=== PATIENT | female | born 1995 | race Caucasian/White ===

== ENCOUNTER → 2017-01-04 01:08 | Emergency (ER) | payer OTHER ==
[~2017-01-04 01:08] MED LIST: diPHENhydraMINE IV* 50 MG/ML 1 ml VIAL (BENADRYL) IV ONE; methylPREDNISolone SOD SUCC* 125 MG 2 ML VIAL IV ONE
[2017-01-04 01:44] LABS: Hematocrit 39 % (35-47); Hemoglobin 13.3 g/dl (12.0-16.0); Mean Corpuscular HGB Conc 34 g/dl (31-36); Mean Corpuscular Hemoglobin 29 pg (27-31); Mean Corpuscular Volume 85 fL (80-97); Mean Platelet Volume 9 um3 (7.4-10.4); Red Blood Count 4.63 10^6/ul (4.0-5.4); Red Cell Distribution Width 13 % (10.5-15); White Blood Count 9.6 10^3/ul (3.5-10.8)
[2017-01-04 01:59] LABS: Albumin 4.3 g/dL (3.2-5.2); BUN/Creatinine Ratio 16.9 (8-20); Calcium 9.3 mg/dL (8.6-10.3); EGFR African American 112.7 (>60); EGFR Non-African American 87.6 (>60); Globulin 2.7 g/dL (2-4); Potassium 3.9 mmol/L (3.5-5.0); Total Bilirubin 0.3 mg/dL (0.2-1.0)
--- NOTE | 2017-01-04 02:07 | ED ---
Marlin Borden Anna, scribed for Marcos Zhang MD on 01/04/17 at 0136 . Allergic Reaction/Systemic - HPI Summary HPI Summary: Patient is a 21 y/o female coming to [facility] presenting with the sudden onset of a constant allergic reaction that began at 1400 today. She has edema and erythema of her left foot, left hand, and face. She denies tongue thickness or respiratory symptoms. She took 25 mg Benadryl [employer]; this did not alleviate the symptoms. She just returned to [place] after a trip to [place]. She is not aware of any specific bites or potential reaction. She has no known allergies. - History of Current Complaint Chief Complaint: EDAllergicReaction Time Seen by Provider: 01/04/17 01:28 Hx Obtained From: Patient Onset/Duration: Sudden Onset, Started hours ago, Still Present Timing: Constant Pain Intensity: 0 Pain Scale Used: 0-10 Numeric Location: Discrete @ - left hand, left foot, face Aggravating Factor(s): Nothing Alleviating Factor(s): Nothing Associated Signs And Symptoms: Positive: Rash - Allergies/Home Medications Allergies/Adverse Reactions: Allergies Allergy/AdvReac Type Severity Reaction Status Date / Time No Known Allergies Allergy Verified 01/04/17 01:24 PMH/Surg Hx/FS Hx/Imm Hx Endocrine/Hematology History: Denies: Hx Diabetes Cardiovascular History: Denies: Hx Hypertension, Hx Pacemaker/ICD Respiratory History: Denies: Hx Asthma History: Denies: Hx Renal Disease Sensory History: Denies: Hx Hearing Aid Psychiatric History: Denies: Hx Panic Disorder - Immunization History Date of Tetanus Vaccine: 5 years Date of Influenza Vaccine: none Infectious Disease History: No Infectious Disease History: Reports: Traveled Outside the [place] in Last 30 Days - [place] - Family History Known Family History: Positive: Other - no FHx of migraines, FHx of sudden by brain aneurism - Social History Occupation: Student Lives: With Family Alcohol Use: Occasionally Substance Use Type: Reports: None Hx Tobacco Use: No Smoking Status (MU): Never Smoked Tobacco Review of Systems Positive: Edema Positive: Rash All Other Systems Reviewed And Are Negative: Yes Physical Exam Triage Information Reviewed: Yes Vital Signs On Initial Exam: Initial Vitals Temp Pulse Resp BP Pulse Ox 98.8 F 85 16 128/75 100 01/04/17 01:15 01/04/17 01:15 01/04/17 01:15 01/04/17 01:15 01/04/17 01:15 Vital Signs Reviewed: Yes Appearance: Positive: Well-Appearing Skin: Positive: Warm, Erythema @ - rt foot, hand ,face Head/Face: Positive: Normal Head/Face Inspection Eyes: Positive: CATIE ENT: Positive: Hearing grossly normal Neck: Positive: Supple Respiratory/Lung Sounds: Positive: Clear to Auscultation, Breath Sounds Present Musculoskeletal: Positive: Strength/ROM Intact Neurological: Positive: Sensory/Motor Intact, Alert, Oriented to Person Place, Time Psychiatric: Positive: Affect/Mood Appropriate Diagnostics - Vital Signs Vital Signs Temp Pulse Resp BP Pulse Ox 01/04/17 01:20 98.8 F 85 16 128/75 100 01/04/17 01:15 98.8 F 85 16 128/75 100 - Laboratory Lab Results: Lab Results 01/04/17 01/04/17 Range/Units 01:30 01:30 WBC 9.6 (3.5-10.8) 10^3/ul RBC 4.63 (4.0-5.4) 10^6/ul Hgb 13.3 (12.0-16.0) g/dl Hct 39 (35-47) % MCV 85 (80-97) fL MCH 29 (27-31) pg MCHC 34 (31-36) g/dl RDW 13 (10.5-15) % Plt Count 195 (150-450) 10^3/ul MPV 9 (7.4-10.4) um3 Neut % (Auto) 67.9 (38-83) % Lymph % (Auto) 25.8 (25-47) % [place] % (Auto) 4.5 (1-9) % Eos % (Auto) 1.1 (0-6) % Baso % (Auto) 0.7 (0-2) % Absolute Neuts (auto) 6.5 (1.5-7.7) 10^3/ul Absolute Lymphs (auto) 2.5 (1.0-4.8) 10^3/ul Absolute Monos (auto) 0.4 (0-0.8) 10^3/ul Absolute Eos (auto) 0.1 (0-0.6) 10^3/ul Absolute Basos (auto) 0.1 (0-0.2) 10^3/ul Absolute Nucleated RBC 0.01 10^3/ul Nucleated RBC % 0.1 Sodium 136 (133-145) mmol/L Potassium 3.9 (3.5-5.0) mmol/L Chloride 102 (101-111) mmol/L Carbon Dioxide 24 (22-32) mmol/L Anion Gap 10 (2-11) mmol/L BUN 14 (6-24) mg/dL Creatinine 0.83 (0.51-0.95) mg/dL Est GFR ( Amer) 112.7 (>60) Est GFR (Non-Af Amer) 87.6 (>60) BUN/Creatinine Ratio 16.9 (8-20) Glucose 91 (70-100) mg/dL Calcium 9.3 (8.6-10.3) mg/dL Total Bilirubin 0.30 (0.2-1.0) mg/dL AST 20 (13-39) U/L ALT 15 (7-52) U/L Alkaline Phosphatase 36 (34-104) U/L Total Protein 7.0 (6.4-8.9) g/dL Albumin 4.3 (3.2-5.2) g/dL Globulin 2.7 (2-4) g/dL Albumin/Globulin Ratio 1.6 (1-3) Result Diagrams: 01/04/17 01:30 01/04/17 01:30 Lab Statement: Any lab studies that have been ordered have been reviewed, and results considered in the medical decision making process. Re-Evaluation - Re-Evaluation First Eval Change: Improved Allergic Reaction Course/Dx - Course Assessment/Plan: Patient is a 21 y/o female coming to [facility] presenting with the sudden onset of a constant allergic reaction that began at 1400 today. She has edema and erythema of her left foot, left hand, and face. She denies tongue thickness or respiratory symptoms. She took 25 mg Benadryl [employer]; this did not alleviate the symptoms. She just returned to [place] after a trip to [place]. She is not aware of any specific bites or potential reaction. She has no known allergies. The patient was given Benadryl and Solumedrol in the ED course. Labs WNL. Patient will be discharged with follow up from primary care physician and a prescription for Deltasone. Patient is agreeable with plan. - Diagnoses Provider Diagnoses: Allergic reaction Discharge - Discharge Plan Condition: Stable Disposition: HOME Prescriptions: predniSONE TAB* [Deltasone TAB*] 40 mg PO DAILY #8 tab Patient Education Materials: Prednisone (By mouth), General Allergic Reaction ( ED) Referrals: [facility] [Outside] Additional Instructions: Follow up with your primary care provider within 48 hours. Return to the Emergency Department for new or worsening symptoms. The documentation as recorded by the Marlin burden Anna accurately reflects the service I personally performed and the decisions made by , Marcos Zhang MD.
[2017-01-04 02:41] VITALS: BP 132/59
== END | disposition home or self-care (01) ==
LOC: ED 01:08
DX: T78.40XA Allergy, unspecified, initial encounter (principal); R21 Rash and other nonspecific skin eruption; R60.9 Edema, unspecified; X58.XXXA Exposure to other specified factors, initial encounter
CPT/HCPCS: 36415; 80053; 85025; 99282; J1200; J2930